=== PATIENT | male | born 1980 | race Caucasian/White ===

== ENCOUNTER 2016-12-18 19:39 | Emergency (ER) | payer SELFPAY ==
[2016-12-18] MEDS ORDERED: IBUPROFEN 800 MG TABLET PO ONE (19:56)
--- NOTE | 2016-12-18 19:56 | ER Document Report ---
ED Medical Screen (RME) - General Chief Complaint: Ankle Injury Stated Complaint: RIGHT ANKLE PAIN Time seen by provider: 19:54 Mode of Arrival: Ambulatory Information source: Patient Notes: 36-year-old male presents to ED for right ankle pain around 6:00 this evening. States he jumped off his porch and rolled his ankle. Swelling and bruising to the lateral aspect of the ankle noted. Pain level 4/5 I have greeted and performed a rapid initial assessment of this patient. A comprehensive ED assessment and evaluation of the patient, analysis of test results and completion of medical decision making process will be conducted by an additional ED providers. - Related Data Allergies/Adverse Reactions: No Known Allergies Allergy (Verified 04/19/14 18:07) Past Medical History Renal/ Medical History: Reports: Hx Kidney Stones
[2016-12-18] MEDS ORDERED: HYDROCODONE/ACETAMINOPHEN 5-325 MG 6 TAB/DSPK PO PRN (22:17)
--- NOTE | 2016-12-18 22:17 | ER Document Report ---
ED General - General Chief Complaint: Ankle Injury Stated Complaint: RIGHT ANKLE PAIN Mode of Arrival: Ambulatory Notes: Patient is a 36-year-old male presents with complaints of an ankle sprain. Patient's of this step down and his ankle rolled. Patient says he does not have a previous history of significant ankle sprains the past. Is swelling on the lateral aspect the right ankle but has pain also in the medial aspect of his ankle. No numbness or weakness in the foot. No other complaints. Denies pain anywhere other than his ankle. TRAVEL OUTSIDE OF THE [place] IN LAST 30 DAYS: No - Related Data Allergies/Adverse Reactions: No Known Allergies Allergy (Verified 04/19/14 18:07) Past Medical History - General Information source: Patient - Social History Smoking Status: Unknown if Ever Smoked Frequency of alcohol use: None Drug Abuse: None Family History: Reviewed & Not Pertinent Patient has suicidal ideation: No Patient has homicidal ideation: No Renal/ Medical History: Reports: Hx Kidney Stones. Denies: Hx Peritoneal Dialysis - Immunizations Hx Diphtheria, Pertussis, Tetanus Vaccination: Yes Review of Systems - Review of Systems Notes: My Normal Review Basic REVIEW OF SYSTEMS: CONSTITUTIONAL : Denies fever, chills, or sweats. Denies recent illness. MUSCULOSKELETAL: Pain right ankle SKIN: Denies rash or skin lesions. NEUROLOGICAL:. Denies sensory or motor loss. ALL OTHER SYSTEMS REVIEWED AND NEGATIVE. Physical Exam - Vital signs Vitals: Temp Pulse Resp BP Pulse Ox 98.1 F 77 16 111/71 98 12/18/16 21:56 12/18/16 21:56 12/18/16 21:56 12/18/16 21:56 12/18/16 21:56 - Notes Notes: General Appearance: Well nourished, alert, cooperative, no acute distress, mild obvious discomfort. Vitals: reviewed, See vital signs table. Extremities: strength 5/5 in all extremities, good pulses in all extremities, some obvious swelling to the lateral aspect of the right ankle. Pain to palpation mainly over medial aspect of the ankle. Patient has good strength with plantar and dorsiflexion. He has just minimal tenderness over the base of the Achilles tendon. I do not suspect Achilles tendon injury based on his normal strength with plantar and dorsiflexion. Distal sensation intact. Pulses in the foot are normal., no edema. Skin: warm, dry, appropriate color, no rash Neuro: speech clear, oriented x 3, normal affect, responds appropriately to questions. Course - Vital Signs Vital signs: Temp Pulse Resp BP Pulse Ox 98.1 F 77 16 111/71 98 12/18/16 21:56 12/18/16 21:56 12/18/16 21:56 12/18/16 21:56 12/18/16 21:56 - Transfer of Care Notes: 12/18/16 22:21 Patient has an ankle sprain. X-rays negative. Patient will be given crutches and ankle splint. He's encouraged return to ER if has worsening of his pain or feels unwell. Patient agrees with plan and will be discharged home. Dictation of this chart was performed using voice recognition software; therefore, there may be some unintended grammatical errors. Discharge - Discharge Clinical Impression: Ankle sprain Qualifiers: Encounter type: initial encounter Involved ligament of ankle: unspecified ligament Laterality: right Qualified Code(s): S93.401A - Sprain of unspecified ligament of right ankle, initial encounter Condition: Good Disposition: HOME, SELF-CARE Instructions: Use of Crutches ([facility]), Sprained Ankle ([facility]), Oral Narcotic Medication ([facility]) Additional Instructions: Please return to ER immediately if you have swelling that continues to increase does not improve with keeping your leg elevated. Please keep your leg elevated when sleeping and keep it elevated when sitting in a chair. Please to not bear weight until you do not have pain with bearing weight. Please make sure you continue place your ankle through range of motion several times a day. Please wear the splint and use crutches when on your feet. Return to ER if you have any further concerns.
[2016-12-18 23:06] VITALS: BP 110/71
== END 2016-12-18 23:06 | disposition home or self-care (01) ==
LOC: ER 19:39
DX: S93.401A Sprain of unspecified ligament of right ankle, initial encounter (principal); X50.0XXA Overexertion from strenuous movement or load, initial encounter; Z87.442 Personal history of urinary calculi
CPT/HCPCS: 99283; 73610; L1902

== ENCOUNTER 2018-05-22 19:17 | Emergency (ER) | payer OTHER ==
[2018-05-22] MEDS ORDERED: ACETAMINOPHEN 325 MG TABLET PO ONE (19:20)
[2018-05-22 19:52] VITALS: BP 124/83
--- NOTE | 2018-05-22 19:56 | ER Document Report ---
ED General - General Chief Complaint: Leg Injury Stated Complaint: LEG INJURY Time Seen by Provider: 05/22/18 19:48 Notes: 37-year-old male here with complaints of right leg pain after a large branch accidentally swung back and hit him in the calf area. Since then he has had pain and bruising in the area. He has not taken anything for the symptoms. Pain is worse with movement. Pain is improved with minimizing movement. Denies any numbness tingling weakness swelling. TRAVEL OUTSIDE OF THE [place] IN LAST 30 DAYS: No - Related Data Allergies/Adverse Reactions: No Known Allergies Allergy (Verified 05/22/18 19:18) Past Medical History - Social History Smoking Status: Unknown if Ever Smoked Family History: Reviewed & Not Pertinent Renal/ Medical History: Reports: Hx Kidney Stones. Denies: Hx Peritoneal Dialysis - Immunizations Hx Diphtheria, Pertussis, Tetanus Vaccination: Yes Review of Systems - Review of Systems Notes: See history of present illness for pertinent positive review of systems; otherwise all review of systems have been reviewed and are negative Physical Exam - Notes Notes: PHYSICAL EXAMINATION: GENERAL: Well-appearing and in no acute distress. HEAD: Atraumatic, normocephalic. EYES: Pupils equal round and reactive to light, extraocular movements intact, sclera anicteric, conjunctiva are normal. ENT: nares patent, oropharynx clear without exudates. Moist mucous membranes. NECK: Normal range of motion, supple without lymphadenopathy LUNGS: CTAB and equal. No wheezes rales or rhonchi. HEART: Regular rate and rhythm without murmurs ABDOMEN: Soft, no tenderness. No facial grimacing/wincing upon palpation. No guarding, no rebound. EXTREMITIES: Normal range of motion, no pitting edema. No cyanosis. There is mild to moderate tenderness palpation of the right medial calf with minimal bruising but no appreciable swelling NEUROLOGICAL: Cranial nerves grossly intact. Normal sensory/motor exams. PSYCH: Normal mood, normal affect. SKIN: Warm, Dry, normal turgor, no rashes or lesions noted Course - Re-evaluation Re-evalutation: 05/22/18 19:54 MEDICAL DECISION MAKING: Concern for musculoskeletal strain He has no bony tenderness of the tibia/fibula I did offer pain medicine and crutches however the patient declines Will prescribe tramadol and instructed follow-up PCP next day or few Given return precautions regarding DVT and compartment syndrome Patient understands and agrees to the plan of care - Vital Signs Vital signs: 05/22/18 19:56 Reviewed, normal Discharge - Discharge Clinical Impression: Right leg pain Condition: Good Disposition: HOME, SELF-CARE Additional Instructions: You were seen in the emergency department at [facility]. You likely have muscle strain and bruising from the accident. If you were given any sedating medications, such as tramadol, be sure not to operate heavy machinery (example - driving) and be sure you are not too sedated to walk appropriately. Please followup with your primary physician in the next few days for further management/evaluation. Please return to the emergency department for worsening of symptoms or any symptom that you deem to be concerning or life-threatening. Thank you for allowing us to be part of your care. This documentation serves as your work note. You will need light duty over the next 4 days to allow your leg to heal. Prescriptions: Tramadol HCl 50 mg PO TIDP PRN #10 tablet PRN Reason: Pain Scale Of 5
== END 2018-05-22 20:14 | disposition home or self-care (01) ==
LOC: ER 19:17
DX: M79.604 Pain in right leg (principal); W22.8XXA Striking against or struck by other objects, initial encounter
CPT/HCPCS: 99283

== ENCOUNTER 2020-06-23 22:55 | Emergency (ER) | payer SELFPAY ==
--- NOTE | 2020-06-23 23:40 | ER Document Report ---
ED Medical Screen (RME) - General Chief Complaint: Arm Pain Stated Complaint: LEFT ARM PAIN Time Seen by Provider: 06/23/20 23:32 Mode of Arrival: Ambulatory Information source: Patient Notes: 40-year-old male presented to ED for complaint of numbness to the left chest going down the left arm to the fingertips. He states he has not had any injuries. He does not have any pain. He states his been going on for about 2 weeks. States the only past medical history is kidney stones. He has no pain at this time. He has no tenderness to palpation. He states he does smoke a pack a day does not drink or do any illicit drugs. 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 I have discussed this patient with Dr. Morris. She commended no blood work or chest x-rays be done at this time wait till the he is evaluated in the back and they will determine what treatment to do. I have greeted and performed a rapid initial assessment of this patient. A comprehensive ED assessment and evaluation of the patient, analysis of test results and completion of medical decision making process will be conducted by an additional ED providers. TRAVEL OUTSIDE OF THE [place] IN LAST 30 DAYS: No - Related Data Allergies/Adverse Reactions: No Known Allergies Allergy (Verified 06/23/20 23:30) Past Medical History - Social History Frequency of alcohol use: None Drug Abuse: None Renal/ Medical History: Reports: Hx Kidney Stones. Denies: Hx Peritoneal Dialysis - Immunizations Hx Diphtheria, Pertussis, Tetanus Vaccination: Yes Physical Exam - Vital signs Vitals: Temp Pulse Resp BP Pulse Ox 98.2 F 63 20 123/78 98 06/23/20 23:15 06/23/20 23:15 06/23/20 23:15 06/23/20 23:15 06/23/20 23:15 Course - Vital Signs Vital signs: Temp Pulse Resp BP Pulse Ox 98.2 F 63 20 123/78 98 06/23/20 23:30 06/23/20 23:15 06/23/20 23:15 06/23/20 23:15 06/23/20 23:15
--- NOTE | 2020-06-24 03:46 | RADIOLOGY REPORT (SQ) ---
EXAM DESCRIPTION: [facility]: XR CHEST 2 VIEWS Views: 2 CLINICAL HISTORY: 40 years Male; enlarged ant cervical lymph nodes l arm weak; COMPARISON: None. FINDINGS: Lungs: Lungs are clear, with no focal infiltrate, pneumothorax, or pleural effusion. Mediastinum: Mediastinum is within normal limits for this positioning. Bones: Bony structures are unremarkable. IMPRESSION: 1. No acute cardiothoracic abnormality.
[2020-06-24 03:51] LABS: ABSOLUTE BASOPHILS # (AUTO) 0.1 10^3/uL (0.0-0.2); ABSOLUTE EOSINOPHILS # (AUTO) 0.4 10^3/uL (0.0-0.6); ABSOLUTE LYMPHOCYTES (AUTO) 2.9 10^3/uL (0.5-4.7); ABSOLUTE MONOCYTES (AUTO) 0.8 10^3/uL (0.1-1.4); EOSINOPHILS % (AUTO) 2.6 % (0-6); HEMATOCRIT 40.6 % (37.9-51.0); LYMPHOCYTES % (AUTO) 20.3 % (13-45); MEAN CORPUSCULAR HEMOGLOBIN 31.7 pg (27.0-33.4); MEAN CORPUSCULAR HGB CONC 34.4 g/dL (32.0-36.0); MEAN CORPUSCULAR VOLUME 92 fl (80-97); MONOCYTES % (AUTO) 5.5 % (3-13); PLATELET COUNT 216 10^3/uL (150-450); RED BLOOD COUNT 4.42 10^6/uL (4.35-5.55); RED CELL DISTRIBUTION WIDTH 13.6 % (11.5-14.0); SEGMENTED NEUTROPHILS % (AUTO) 70.6 % (42-78); TOTAL CELLS COUNTED % (AUTO) 100 %; WHITE BLOOD COUNT 14.2 10^3/uL (4.0-10.5)
[2020-06-24 04:09] LABS: ALBUMIN 3.7 g/dL (3.5-5.0); ALKALINE PHOSPHATASE 62 U/L (38-126); ANION GAP 6 (5-19); ASPARTATE AMINO TRANSFERASE 20 U/L (17-59); BILIRUBIN,TOTAL 0.4 mg/dL (0.2-1.3); BLOOD UREA NITROGEN 19 mg/dL (7-20); CALCIUM 9.1 mg/dL (8.4-10.2); CARBON DIOXIDE 25 mmol/L (22-30); CHLORIDE 108 mmol/L (98-107); GLUCOSE 89 mg/dL (75-110); POTASSIUM 4.1 mmol/L (3.6-5.0); TOTAL PROTEIN 6.1 g/dL (6.3-8.2)
--- NOTE | 2020-06-24 04:48 | ER Document Report ---
ED General - General Chief Complaint: LFT ARM Stated Complaint: LEFT ARM PAIN Time Seen by Provider: 06/23/20 23:32 Mode of Arrival: Ambulatory TRAVEL OUTSIDE OF THE [place] IN LAST 30 DAYS: No - HPI Notes: 40-year-old male history of smoking presents with many weeks of intermittent subjective left arm numbness. Says several times throughout the day he feels numbness over his whole left arm. Otherwise feels well, symptoms have not gotten any worse but says that his started to get him about going to get seen by somebody so he came to the ED tonight. Patient denies any weakness, headache, Weight loss, change in vision speech or gait, hypertension, hyperlipidemia, diabetes, stroke history, family history, trauma, chiropractic manipulation, neck pain, back pain, headache - Related Data Allergies/Adverse Reactions: No Known Allergies Allergy (Verified 06/23/20 23:30) Past Medical History - General Information source: Patient - Social History Smoking Status: Current Every Day Smoker Frequency of alcohol use: None Drug Abuse: None Family History: Reviewed & Not Pertinent Renal/ Medical History: Reports: Hx Kidney Stones. Denies: Hx Peritoneal Dialysis - Immunizations Hx Diphtheria, Pertussis, Tetanus Vaccination: Yes Review of Systems - Review of Systems Notes: REVIEW OF SYSTEMS: CONSTITUTIONAL : Denies fever, chills, or sweats. EENT: Denies recent cold/sinus symptoms, denies throat pain CARDIOVASCULAR: Denies chest pain, GERARDO RESPIRATORY: Denies cough, denies shortness of breath. GASTROINTESTINAL: Denies abdominal pain, nausea/vomiting. GENITOURINARY: Denies difficulty urinating, painful urination. MUSCULOSKELETAL: Denies neck pain, back pain. SKIN: Denies rash or skin lesions. HEMATOLOGIC : Denies easy bruising or bleeding. LYMPHATIC: Denies swollen, enlarged glands. NEUROLOGICAL: Denies headache, denies change in gait. PSYCHIATRIC: Denies anxiety or stress or depression. Physical Exam - Vital signs Vitals: Temp Pulse Resp BP Pulse Ox 98.2 F 63 20 123/78 98 06/23/20 23:15 06/23/20 23:15 06/23/20 23:15 06/23/20 23:15 06/23/20 23:15 - Notes Notes: PHYSICAL EXAMINATION: GENERAL: Well-appearing, well-nourished and in no acute distress. HEAD: Atraumatic, normocephalic. EYES: Pupils equal round and appropriate constriction, sclera anicteric, conjunctiva are normal. ENT: nares patent, moist mucous membranes. NECK: Normal range of motion, bilateral nontender anterior cervical lymphadenopathy LUNGS: Breath sounds clear to auscultation bilaterally and equal. No wheezes rales or rhonchi. HEART: Regular rate and rhythm without murmurs ABDOMEN: Soft, nontender, no guarding, no masses, no CVAT EXTREMITIES: Normal range of motion, no pitting or edema. No cyanosis. Normal inspection, bilateral radial pulses 2+ and equal, full range of motion without any tenderness, no edema, no erythema, 5 out of 5 strength at all articulations in all extremities, normal sensation NEUROLOGICAL: Awake, alert, conversing appropriately, moves all extremities spontaneously. PSYCH: Normal mood, normal affect. SKIN: Warm, Dry, normal turgor, no rashes or lesions noted. Course - Re-evaluation Re-evalutation: 06/24/20 04:49 Patient smoker but young age and no other stroke risk factors, symptoms have been intermittent for many weeks to months without any acute change, currently feels normal and has normal exam. EKG was done in triage which showed some anterior Q waves so troponin was obtained which was normal, I informed patient of findings and instructed him to follow this up with his primary doctor. On his exam patient has nontender anterior cervical lymphadenopathy concerning for possible underlying malignancy, I spoke to patient at length regarding this finding and that this could be a sign of cancers including leukemia or lymphoma and patient demonstrated understanding of the need to closely follow-up with the primary doctor. I obtain chest x-ray for preliminary screening which showed no masses. Patient needs close outpatient follow-up but no indications of any emergent diagnoses. I gave patient extensive return to ED precautions which she demonstrated understanding of. I gave a copy of all results for patient to bring when he follows up with primary doctor. - Vital Signs Vital signs: Temp Pulse Resp BP Pulse Ox 98.2 F 63 20 123/78 98 06/23/20 23:30 06/23/20 23:15 06/23/20 23:15 06/23/20 23:15 06/23/20 23:15 - Laboratory Result Diagrams: 06/24/20 03:39 06/24/20 03:39 Laboratory results interpreted by me: 06/24/20 06/24/20 03:39 03:39 WBC 14.2 H Absolute Neuts (auto) 10.0 H Chloride 108 H Total Protein 6.1 L - EKG Interpretation by Me Additional EKG results interpreted by me: 06/24/20 04:51 Heart rate 59, no significant ST elevations or depressions, no significant T wave abnormalities, QTc 405, anterior Q waves Discharge - Discharge Clinical Impression: Arm numbness, Lymph node enlargement Disposition: HOME, SELF-CARE Additional Instructions: You must follow-up with a primary doctor regarding your left arm numbness and your enlarged lymph nodes in your neck. The symptoms could be secondary to serious diseases such as cancer and it is very important that you follow-up. If you should have any worsening numbness, weakness, change in vision, change in how you walk or talk, chest pain, trouble breathing, or any other worsening or alarming symptoms return to the emergency department immediately. Referrals: [facility] [Provider Group] - Follow up as needed
[2020-06-24 06:12] VITALS: BP 143/83
--- NOTE | 2020-06-24 17:52 | EKG REPORT ---
SEVERITY:- ABNORMAL ECG - SINUS RHYTHM PROBABLE ANTEROSEPTAL INFARCT, AGE INDETERM VERSUS LEAD PLACEMENT : Confirmed by: Rowena Medina MD 24-Jun-2020 17:52:18
== END 2020-06-24 06:12 | disposition home or self-care (01) ==
LOC: ER 22:55
DX: R20.0 Anesthesia of skin (principal); R59.0 Localized enlarged lymph nodes; F17.200 Nicotine dependence, unspecified, uncomplicated
CPT/HCPCS: 36415; 71046; 80053; 84484; 85025; 93005; 93010; 99284